=== PATIENT | male | born 1930 | race Caucasian/White ===

== ENCOUNTER → 2017-08-15 | Outpatient (CLI) | payer MEDICARE, OTHER ==
[~2017-08-15] MED LIST: AEC81 PO; AMLO5TAB2 PO; ATOR10 PO; BICA50TA3 PO; CLOP75TA14 PO; DOCU50CA13 PO; FENO145T37 PO; FINA5TAB41 PO; OLME20TA10 PO; OLME40TA8 PO; OMEP20CA10 PO; OXCA300T46 PO; OXYB5 PO; PANT20TA PO
== END | disposition home or self-care (01) ==
LOC: SHCH 15:30
PROVIDERS: ATTEND Internal Medicine Cardiovascular Disease
DX: I10 Essential (primary) hypertension (principal)
CPT/HCPCS: 93306

== ENCOUNTER → 2017-08-21 | Outpatient (CLI) | payer MEDICARE, OTHER ==
[~2017-08-21] MED LIST changes: +REGADENOSON 0.4 MG/5 ML PF SYG IVP SCH
== END | disposition home or self-care (01) ==
LOC: SHCH 08:15
PROVIDERS: ATTEND Internal Medicine Cardiovascular Disease
DX: I25.10 Atherosclerotic heart disease of native coronary artery without angina pectoris (principal)
CPT/HCPCS: 78452; 93017; 96374; A9500 ×2; J2785

== ENCOUNTER 2017-10-02 08:52 | Day surgery (SDC) | payer MEDICARE, OTHER ==
[2017-09-30 10:09] LABS: BASOPHILS % (AUTO) 0.6 % (0.0-5.0); EOSINOPHILS % (AUTO) 3.3 % (0.0-8.0); HEMATOCRIT 36.7 % (42-54); LYMPHOCYTES % (AUTO) 18.2 % (21.0-51.0); MEAN CORPUSCULAR HEMOGLOBIN 32.5 pg (27.0-33.0); MEAN CORPUSCULAR VOLUME 90.1 fL (79-99); MONOCYTES % (AUTO) 10.2 % (3.0-13.0); NEUTROPHILS % (AUTO) 67.7 % (40.0-77.0); PLATELET COUNT (AUTO) 266 K/uL (130-400); RED BLOOD CELL COUNT(AUTO) 4.07 MIL/uL (4.50-6.20); RED CELL DISTRIBUTION WIDTH 12.4 % (11.0-15.5); WHITE BLOOD COUNT (AUTO) 5.1 K/uL (4.8-10.8)
[2017-09-30 10:14] VITALS: BP 188/84
[2017-09-30 10:18] LABS: APPEARANCE,URINE Clear (CLEAR); BILIRUBIN,URINE Negative (NEGATIVE); COLOR,URINE Yellow (YELLOW); GLUCOSE, URINE (UA) Negative (NEGATIVE); KETONES,URINE Negative (NEGATIVE); LEUKOCYTE ESTERASE ,URINE Negative (NEGATIVE); NITRATE,URINE Negative (NEGATIVE); OCCULT BLOOD,URINE Negative (NEGATIVE); PH,URINE 6.5 (5.0-8.0); PROTEIN,URINE Negative (NEGATIVE); UROBILINOGEN,URINE 0.2 mg/dL (0.2-1.0)
[2017-09-30 10:20] LABS: CREATININE 1.5 mg/dL (0.5-1.5); POTASSIUM 4.7 mmol/L (3.5-5.1)
[2017-09-30 10:23] LABS: INR 0.95 (0.85-1.15)
[~2017-10-02] VITALS: Ht 167.6 cm; Wt 67.4 kg
[2017-10-02] VITALS (10 sets, daily range): BP systolic 116–143; BP diastolic 52–70
[~2017-10-02 08:52] MED LIST changes: -BICA50TA3 PO; +BICA50TA7 PO; -OLME40TA8 PO; -REGADENOSON 0.4 MG/5 ML PF SYG IVP SCH; +SODIUM CHLORIDE 0.9% 500ML 500 ML IV SCH
[2017-10-02 09:19] LABS: CREATININE 1.4 mg/dL (0.5-1.5)
[2017-10-02] MEDS ORDERED: SODIUM CHLORIDE 0.9% 1000ML 1,000 ML IV ONE (09:25)
[2017-10-02] MEDS ORDERED: IOPAMIDOL-370 100 ML VIAL IV ONE (11:08)
[2017-10-02] MEDS ORDERED: NITROGLYCERIN 5 MG/ML 10 ML VIAL IV ONE (11:08)
[2017-10-02] MEDS ORDERED: ISOVUE-370 50ML VIAL IV ONE (11:08)
[2017-10-02] MEDS ORDERED: LIDOCAINE HCL 1% 20 ML VIAL ONE (11:09)
[2017-10-02] MEDS ORDERED: SODIUM BICARB 50MEQ 50ML VIAL ONE (11:09)
[2017-10-02] MEDS ORDERED: HEPARIN SODIUM 1000UNIT/ML 10ML VIAL ONE (12:41)
[2017-10-02] MEDS ORDERED: HYDRALAZINE HCL 20 MG/ML VIAL ONE (12:53)
[2017-10-02] MEDS ORDERED: SODIUM CHLORIDE 0.9% 1000ML 1,000 ML IV SCH (13:13)
[2017-10-02] MEDS ORDERED: OLME40TA8 PO (13:16)
== END 2017-10-02 17:43 | disposition home or self-care (01) ==
LOC: DAH 08:52
PROVIDERS: ATTEND Internal Medicine Cardiovascular Disease
DX: I25.118 Atherosclerotic heart disease of native coronary artery with other forms of angina pectoris (principal); I73.89 Other specified peripheral vascular diseases; K57.30 Diverticulosis of large intestine without perforation or abscess without bleeding; E78.4 Other hyperlipidemia; G47.33 Obstructive sleep apnea (adult) (pediatric); Z79.899 Other long term (current) drug therapy; Z79.01 Long term (current) use of anticoagulants; Z79.82 Long term (current) use of aspirin; Z85.46 Personal history of malignant neoplasm of prostate; Z87.442 Personal history of urinary calculi; Z95.1 Presence of aortocoronary bypass graft; Z86.010 Personal history of colon polyps
CPT/HCPCS: 36415; 71045; 75710; 75716; 80048; 81003; 85025; 85610; 85730; 93005; 93459; A4606; C1760; C1894; J0360; J1644; J3490; J7030; Q9967

== ENCOUNTER → 2017-10-08 | Outpatient (CLI) | payer MEDICARE, OTHER ==
[~2017-10-08] MED LIST changes: -OLME20TA10 PO; +OLME40TA8 PO; -SODIUM CHLORIDE 0.9% 500ML 500 ML IV SCH
== END | disposition home or self-care (01) ==
LOC: SHCH 11:40
PROVIDERS: ATTEND Internal Medicine Cardiovascular Disease
DX: I72.4 Aneurysm of artery of lower extremity (principal)
CPT/HCPCS: 76936

== ENCOUNTER → 2017-11-12 | Outpatient (CLI) | payer MEDICARE, OTHER ==
[~2017-11-12] MED LIST changes: +ALBUTEROL SULFATE 0.083% 2.5 MG/3 ML INH IH ONE
== END | disposition home or self-care (01) ==
LOC: RESP 08:33
PROVIDERS: ATTEND Internal Medicine Cardiovascular Disease
DX: R06.02 Shortness of breath (principal)
CPT/HCPCS: 94060; 94727; 94729

== ENCOUNTER → 2018-05-28 | Outpatient (CLI) | payer MEDICARE, OTHER ==
[~2018-05-28] MED LIST changes: -ALBUTEROL SULFATE 0.083% 2.5 MG/3 ML INH IH ONE; -AMLO5TAB2 PO; +AMLO5TAB7 PO
== END | disposition home or self-care (01) ==
LOC: SHCH 09:25
PROVIDERS: ATTEND Internal Medicine Cardiovascular Disease
DX: I65.23 Occlusion and stenosis of bilateral carotid arteries (principal)
CPT/HCPCS: 93880

== ENCOUNTER → 2018-08-11 | Outpatient (CLI) | payer MEDICARE, OTHER ==
[~2018-08-11] MED LIST changes: -AMLO5TAB7 PO; +AMLO5TAB9 PO
--- NOTE | 2018-08-11 11:00 | NUR ---
MBSS COMPLETED. -S/S OF ASPIRATION. RECOMMEND REGULAR TEXTURE, THIN LIQUIDS; PILLS WHOLE WITH LIQUIDS; GI CONSULT SECONDARY TO POSSIBLE ZENKER'S DIVERTICULUM. PATIENT INFORMATION: Pt IS AN 88 YEAR OLD MALE REFERRED FOR AN MBSS SECONDARY TO COMPLAINS OF DIFFICULTY SWALLOWING AND CHOCKING. Pt REPORTS THAT HE HAS BEEN HAVING DIFFICULTY SWALLOWING FOR ABOUT 3 YEARS. HE STATES THAT HE PARTICIPATED IN ESOPHAGEAL DILATIONS X2 IN THE LAST 3 YEARS. HOWEVER, HE CURRENTLY STILL FEELS LIKE HIS FOOD GETS STUCK. 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 MBSS INTERPRETATION: SWALLOW FUNCTION AND EFFICIENCY WITHIN FUNCTIONAL LIMITS. ORAL MOTOR STRENGTH, COORDINATION, AND ROM WITHIN FUNCTIONAL LIMITS. LARYNGEAL ELEVATION/EXCURSION STRONG WITH TIMELY PHARYNGEAL RESPONSE. NO SIGNS OR SYMPTOMS OF ASPIRATION DURING MBSS. OBSERVATION: PT WITH POCKET FORMED IN POSTERIOR PHARYNGEAL WALL ABOVE UPPER ESOPHAGEAL SPHINCTER WITH POOLING OF BOLUS (UNABLE TO CLEAR), ZENKER'S DIVERTICULUM; RADIOLOGIST PLEASE DIAGNOSE. POOLING NOT COMPROMISING AIRWAY. TRIALS: 1. TSP PUREED: POOLING OF BOLUS IN POSSIBLE ZENKER'S DIVERTICULUM 2. CUP SIP THIN LIQUIDS: GOOD 3. TSP PUDDING: POOLING OF BOLUS IN POSSIBLE ZENKER'S DIVERTICULUM 4. TSP MIXED: POOLING OF BOLUS IN POSSIBLE ZENKER'S DIVERTICULUM 5. COOKIE: POOLING OF BOLUS IN POSSIBLE ZENKER'S DIVERTICULUM 6. CUP SIP THIN LIQUIDS: GOOD 7. STRAW SIP THIN LIQUIDS: GOOD RECOMMENDATIONS: 1. REGULAR TEXTURE, THIN LIQUIDS DIET; PILLS WHOLE WITH LIQUIDS. 2. COMPENSATORY STRATEGIES: (PROPHYLAXIS) *SEATED AT 90 DEGREES *SLOW RATE *ALTERNATE BITES AND SIPS 3. GI CONSULT SECONDARY TO POSSIBLE ZENKER'S DIVERTICULUM G-CODES SWALLOWING: [id number] Addendum: 08/12/18 at 0828 by ZENAIDA ERNST, [facility] Amended: Links added.
== END | disposition home or self-care (01) ==
LOC: RAH 09:41
PROVIDERS: ATTEND Internal Medicine
DX: R13.10 Dysphagia, unspecified (principal); R63.3 Feeding difficulties
CPT/HCPCS: G8996; G8997; G8998; 74230; 92611

== ENCOUNTER → 2018-08-12 | Outpatient (CLI) | payer MEDICARE, OTHER | END | disposition home or self-care (01) | LOC: RAH 08:35 | PROVIDERS: ATTEND Internal Medicine | DX: K21.9 Gastro-esophageal reflux disease without esophagitis (principal); K44.9 Diaphragmatic hernia without obstruction or gangrene; K22.5 Diverticulum of esophagus, acquired | CPT/HCPCS: 74240 ==

== ENCOUNTER → 2018-08-19 | Outpatient (CLI) | payer MEDICARE, OTHER | END | disposition home or self-care (01) | LOC: RAH 08:37 | PROVIDERS: ATTEND Internal Medicine Cardiovascular Disease | DX: I34.0 Nonrheumatic mitral (valve) insufficiency (principal); R06.02 Shortness of breath | CPT/HCPCS: 93306 ==